=== PATIENT | female | born 1980 | race Caucasian/White ===

== ENCOUNTER 2016-12-19 18:00 | Emergency (ER) | payer OTHER ==
--- NOTE | 2016-12-19 18:28 | ED NURSING NOTES ---
Clinical Report - Nurses [facility] [address] [place] [address] 12/19/2016 18:04 Patient: LANCE DELGADO TRIAGE Triage time 18:08 Dec 19 2016. Chief Complaint: RIGHT EAR PAIN and LEFT EAR PAIN, SINUS CONGESTION and SINUS PAIN (pt c/o bilat ear pain L>R that began yesterday, pt also c/o sinus pain and cough). Alert. No acute distress. SEPSIS SCREEN: Sepsis Screen: negative. Infection suspected/documented. --18:12 Sofy Tipton R.N. 18:08 12/19/16. BP: 121/76. HR: 80. RR: 17. O2 saturation: 100%. Temp: 98 F. Pain level now: 08/28. --18:12 Sofy Tipton R.N. Weight: 61.2 kg stated. Height/Length: 65 inches Per Patient. BMI: 22.5. --18:11 Sofy Tipton R.N. Medications FLUoxetine HCl Oral. --18:09 Sofy Tipton R.N. Medication/allergy information source: the patient. --18:12 Sofy Tipton R.N. Allergies None. --18:09 Sofy Tipton R.N. History Arrived by private vehicle. Historian: patient. Accompanied by family. The patient has had sinus pain. 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 PAST MEDICAL HX: Immunizations: up-to-date. Last normal menstrual period- 1 weeks ago. SOCIAL HX: Smoker- current status unknown (cigarette). Occasional alcohol use. History of occasional drug use: marijuana. No infectious disease exposure. ABUSE ASSESSMENT: No report of abuse. SELF HARM ASSESSMENT: A self harm assessment was performed. The patient answered "no" to the question "Do you have thoughts of harming or killing yourself?". FALL RISK ASSESSMENT: Fall risk assessment completed. No fall risk identified. NUTRITIONAL RISK ASSESSMENT: The nutritional risk assessment revealed no deficiencies. FUNCTIONAL ASSESSMENT: Functional assessment: no impairments noted. LEARNING NEEDS ASSESSMENT: The learning needs assessment revealed no barriers. SKIN INTEGRITY ASSESSMENT: Skin integrity risk assessment completed. No skin integrity risk identified. --18:12 Sofy Tipton R.N. PROBLEMS: no known problems. ADDITIONAL SURGERIES: no known surgeries. Interventions ID band on patient. To treatment room. --18:12 Sofy Tipton R.N. PHYSICAL ASSESSMENT Ambulatory to room. Patient gowned. GENERAL / NEURO / PSYCH: Alert. Appears in no acute distress. HEENT: No facial asymmetry noted. Pupils equal, round and reactive to light. Pharynx within normal limits. RESPIRATORY: Respirations not labored. CVS: Capillary refill less than 2 seconds. SKIN: Skin is warm and dry. --18:12 Sofy Tipton R.N. NURSING PROGRESS NOTES Patient gowned. Reassurance given. Patient identifiers checked. Call light placed in reach. Side rails up x 1. Bed placed in lowest position. Brakes of bed on. Patient ready for evaluation- chart flagged. Patient waiting for evaluation. --18:12 Sofy Tipton R.N. DISPOSITION / DISCHARGE 18:30. Condition at departure: unchanged. No learning barriers present. Discharge instructions provided and reviewed with the patient. Reviewed medication(s) side effects, precautions, dosing and course information. Prescription(s) given to the patient. Patient verbalized understanding. Written instructions provided in Lithuanian. The patient was discharged home. She left the Emergency Department ambulatory and via private vehicle. Patient driving. Medication list reviewed and validated. --18:40 Milena Chavarria R.N. 18:08 12/19/16. BP: 121/76. HR: 80. RR: 17. O2 saturation: 100%. Temp: 98 F. Pain level now: 08/28. --18:41 Milena Chavarria R.N. Locked/Released at 12/19/2016 18:41 by Milena Chavarria R.N.
--- NOTE | 2016-12-19 18:28 | ED CLINICAL REPORT ---
Clinical Report - Physicians/Mid Levels [facility] [address] [place] [address] 12/19/2016 18:04 [id number] Time Seen: 18:18 Dec 19 2016. Arrived- By private vehicle. Historian- patient. CPT: ER phys charges level 3 (#[id number]). HISTORY OF PRESENT ILLNESS Chief Complaint: SINUS PAIN. EAR ACHE. This started yesterday and is still present. The illness is described as moderate. The patient has had sputum production, a cough, nasal congestion and sinus pressure. No difficulty breathing, chest discomfort or pain, fever or muscle aches. No chills, sore throat or hoarseness. Additional history - No known contact with a sick individual. Similar symptoms previously: None. Recent medical care: Not recently seen/assessed. REVIEW OF SYSTEMS No headache, nausea, vomiting, diarrhea or abdominal pain. No pedal edema, calf pain, skin rash or enlarged lymph nodes. All systems otherwise negative, except as recorded above. PAST HISTORY See nurses notes. Problems: no known problems. Additional Surgeries: no known surgeries. Medications: FLUoxetine HCl Oral. Allergies: None. SOCIAL HISTORY Light tobacco smoker (cigarette)- less than 1/2 a pack per day. Alcohol use. History of drug use: marijuana. ADDITIONAL NOTES The nursing notes have been reviewed. PHYSICAL EXAM Vital Signs: 12/19/2016 18:08 BP: 121/76. HR: 80. RR: 17. O2 saturation: 100%. Temp: 98 F. Pain level now: 3/10. Appearance: Alert. No acute distress. Head: No tenderness to palpation/percussion over the sinuses. Eyes: Pupils equal, round and reactive to light. Eyes normal inspection. ENT: Right TM reveals bulging and moderate erythema left TM reveals bulging and moderate erythema. Nasal discharge present. Pharynx normal. Uvula midline. Neck: Normal inspection. CVS: Normal heart rate and rhythm. Pulses normal. Respiratory: No respiratory distress. Breath sounds normal. Abdomen: Soft and nontender. Skin: Normal skin color. No rash. Neuro: Oriented X 3. No motor deficit. No sensory deficit. PROGRESS AND PROCEDURES Patient/family counseled. Disposition: Discharged. Condition: stable. CLINICAL IMPRESSION Acute and recurrent serous right otitis media; acute and recurrent serous left otitis media. Acute bacterial mucopurulent bronchitis. INSTRUCTIONS Drink plenty of fluids. Drink plenty of fluids. (Get a decongestant over the counter.). Warnings: Further evaluation is necessary. GENERAL WARNINGS: Return or contact your physician immediately if your condition worsens or changes unexpectedly, if not improving as expected, or if other problems arise. Your Current Medications: CONTINUE TAKING THE FOLLOWING MEDICATIONS: FLUoxetine HCl Oral. Prescription Medications: Zithromax 250 mg tablets: take 2 orally today, followed by 1 daily for the next 4 days. No refills. Substitution is permissible. OTC Medications: Acetaminophen (available over the counter): take according to label instructions. Motrin (available over the counter): take according to label instructions. Follow-up: Follow up with your doctor in one week. Call for an appointment. Understanding of the discharge instructions verbalized by patient. (Electronically signed by Edwin Lowe MD 12/19/2016 20:54)
--- NOTE | 2016-12-19 18:28 | ED CLINICAL REPORT ---
Clinical Report - Physicians/Mid Levels [facility] [address] [place] [address] 12/19/2016 18:04 [id number] Time Seen: 18:18 Dec 19 2016. Arrived- By private vehicle. Historian- patient. CPT: ER phys charges level 3 (#[id number]). HISTORY OF PRESENT ILLNESS Chief Complaint: SINUS PAIN. EAR ACHE. This started yesterday and is still present. The illness is described as moderate. The patient has had sputum production, a cough, nasal congestion and sinus pressure. No difficulty breathing, chest discomfort or pain, fever or muscle aches. No chills, sore throat or hoarseness. Additional history - No known contact with a sick individual. Similar symptoms previously: None. Recent medical care: Not recently seen/assessed. REVIEW OF SYSTEMS No headache, nausea, vomiting, diarrhea or abdominal pain. No pedal edema, calf pain, skin rash or enlarged lymph nodes. All systems otherwise negative, except as recorded above. PAST HISTORY See nurses notes. Problems: no known problems. Additional Surgeries: no known surgeries. Medications: FLUoxetine HCl Oral. Allergies: None. SOCIAL HISTORY Light tobacco smoker (cigarette)- less than 1/2 a pack per day. Alcohol use. History of drug use: marijuana. ADDITIONAL NOTES The nursing notes have been reviewed. PHYSICAL EXAM Vital Signs: 12/19/2016 18:08 BP: 121/76. HR: 80. RR: 17. O2 saturation: 100%. Temp: 98 F. Pain level now: 3/10. Appearance: Alert. No acute distress. Head: No tenderness to palpation/percussion over the sinuses. Eyes: Pupils equal, round and reactive to light. Eyes normal inspection. ENT: Right TM reveals bulging and moderate erythema left TM reveals bulging and moderate erythema. Nasal discharge present. Pharynx normal. Uvula midline. Neck: Normal inspection. CVS: Normal heart rate and rhythm. Pulses normal. Respiratory: No respiratory distress. Breath sounds normal. Abdomen: Soft and nontender. Skin: Normal skin color. No rash. Neuro: Oriented X 3. No motor deficit. No sensory deficit. PROGRESS AND PROCEDURES Patient/family counseled. Disposition: Discharged. Condition: stable. CLINICAL IMPRESSION Acute and recurrent serous right otitis media; acute and recurrent serous left otitis media. Acute bacterial mucopurulent bronchitis. INSTRUCTIONS Drink plenty of fluids. Drink plenty of fluids. (Get a decongestant over the counter.). Warnings: Further evaluation is necessary. GENERAL WARNINGS: Return or contact your physician immediately if your condition worsens or changes unexpectedly, if not improving as expected, or if other problems arise. Your Current Medications: CONTINUE TAKING THE FOLLOWING MEDICATIONS: FLUoxetine HCl Oral. Prescription Medications: Zithromax 250 mg tablets: take 2 orally today, followed by 1 daily for the next 4 days. No refills. Substitution is permissible. OTC Medications: Acetaminophen (available over the counter): take according to label instructions. Motrin (available over the counter): take according to label instructions. Follow-up: Follow up with your doctor in one week. Call for an appointment. Understanding of the discharge instructions verbalized by patient. (Electronically signed by Edwin Lowe MD 12/19/2016 20:54)
--- NOTE | 2016-12-19 18:28 | ED NURSING NOTES ---
Clinical Report - Nurses [facility] [address] [place] [address] 12/19/2016 18:04 Patient: LANCE DELGADO TRIAGE Triage time 18:08 Dec 19 2016. Chief Complaint: RIGHT EAR PAIN and LEFT EAR PAIN, SINUS CONGESTION and SINUS PAIN (pt c/o bilat ear pain L>R that began yesterday, pt also c/o sinus pain and cough). Alert. No acute distress. SEPSIS SCREEN: Sepsis Screen: negative. Infection suspected/documented. --18:12 Sofy Tipton R.N. 18:08 12/19/16. BP: 121/76. HR: 80. RR: 17. O2 saturation: 100%. Temp: 98 F. Pain level now: 08/28. --18:12 Sofy Tipton R.N. Weight: 61.2 kg stated. Height/Length: 65 inches Per Patient. BMI: 22.5. --18:11 Sofy Tipton R.N. Medications FLUoxetine HCl Oral. --18:09 Sofy Tipton R.N. Medication/allergy information source: the patient. --18:12 Sofy Tipton R.N. Allergies None. --18:09 Sofy Tipton R.N. History Arrived by private vehicle. Historian: patient. Accompanied by family. The patient has had sinus pain. 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 PAST MEDICAL HX: Immunizations: up-to-date. Last normal menstrual period- 1 weeks ago. SOCIAL HX: Smoker- current status unknown (cigarette). Occasional alcohol use. History of occasional drug use: marijuana. No infectious disease exposure. ABUSE ASSESSMENT: No report of abuse. SELF HARM ASSESSMENT: A self harm assessment was performed. The patient answered "no" to the question "Do you have thoughts of harming or killing yourself?". FALL RISK ASSESSMENT: Fall risk assessment completed. No fall risk identified. NUTRITIONAL RISK ASSESSMENT: The nutritional risk assessment revealed no deficiencies. FUNCTIONAL ASSESSMENT: Functional assessment: no impairments noted. LEARNING NEEDS ASSESSMENT: The learning needs assessment revealed no barriers. SKIN INTEGRITY ASSESSMENT: Skin integrity risk assessment completed. No skin integrity risk identified. --18:12 Sofy Tipton R.N. PROBLEMS: no known problems. ADDITIONAL SURGERIES: no known surgeries. Interventions ID band on patient. To treatment room. --18:12 Sofy Tipton R.N. PHYSICAL ASSESSMENT Ambulatory to room. Patient gowned. GENERAL / NEURO / PSYCH: Alert. Appears in no acute distress. HEENT: No facial asymmetry noted. Pupils equal, round and reactive to light. Pharynx within normal limits. RESPIRATORY: Respirations not labored. CVS: Capillary refill less than 2 seconds. SKIN: Skin is warm and dry. --18:12 Sofy Tipton R.N. NURSING PROGRESS NOTES Patient gowned. Reassurance given. Patient identifiers checked. Call light placed in reach. Side rails up x 1. Bed placed in lowest position. Brakes of bed on. Patient ready for evaluation- chart flagged. Patient waiting for evaluation. --18:12 Sofy Tipton R.N. DISPOSITION / DISCHARGE 18:30. Condition at departure: unchanged. No learning barriers present. Discharge instructions provided and reviewed with the patient. Reviewed medication(s) side effects, precautions, dosing and course information. Prescription(s) given to the patient. Patient verbalized understanding. Written instructions provided in Hebrew. The patient was discharged home. She left the Emergency Department ambulatory and via private vehicle. Patient driving. Medication list reviewed and validated. --18:40 Milena Chavarria R.N. 18:08 12/19/16. BP: 121/76. HR: 80. RR: 17. O2 saturation: 100%. Temp: 98 F. Pain level now: 08/28. --18:41 Milena Chavarria R.N. Locked/Released at 12/19/2016 18:41 by Milena Chavarria R.N.
--- NOTE | 2016-12-19 20:54 | ED MED RECONCILIATION SUMMARY ---
Patient: LANCE DELGADO Medication Reconciliation Report [facility] VisitID: [id number] [address] [place] [address] 36y, F Registration Date/Time: 12/19/2016 Weight: 61.2 kg Height/Length: 65 in. BMI: 22.5 ALLERGIES: None The patient's Home Medications are listed below: CONTINUE TAKING THE FOLLOWING MEDICATIONS: FLUoxetine HCl Oral The source(s) of the original Home Medication information: patient The following Medications were given to the patient in the Emergency Department: None. The following Medications were prescribed to the patient: Acetaminophen (available over the counter): take according to label instructions. -- Edwin Lowe MD Motrin (available over the counter): take according to label instructions. -- Edwin Lowe MD Zithromax 250 mg tablets: take 2 orally today, followed by 1 daily for the next 4 days. No refills. Substitution is permissible. -- Edwin Lowe MD
--- NOTE | 2016-12-19 20:54 | ED MAR SUMMARY ---
..... Medication Administration Record [facility] [address], [place] [id number] Patient: LANCE DELGADO [place] Visit ID: [id number] 36y, F Weight: 61.2 kg Height/Length: 65 in BMI: 22.5 ALLERGIES: None
--- NOTE | 2016-12-19 20:54 | ED MAR SUMMARY ---
..... Medication Administration Record [facility] [address] [place], [place] [id number] Patient: LANCE DELGADO [place] Visit ID: [id number] 36y, F Weight: 61.2 kg Height/Length: 65 in BMI: 22.5 ALLERGIES: None
--- NOTE | 2016-12-19 20:54 | ED DISCHARGE INSTRUCTIONS ---
Patient: LANCE DELGAOD General Instructions [facility] VisitID: [id number] [place] [address] 36y, F Registration Date/Time: 12/19/2016 Acute and recurrent serous right otitis media; acute and recurrent serous left otitis media. INSTRUCTIONS Drink plenty of fluids. Drink plenty of fluids. (Get a decongestant over the counter.). Warnings: Further evaluation is necessary. GENERAL WARNINGS: Return or contact your physician immediately if your condition worsens or changes unexpectedly, if not improving as expected, or if other problems arise. Your Current Medications: CONTINUE TAKING THE FOLLOWING MEDICATIONS: FLUoxetine HCl Oral. Prescription Medications: Zithromax 250 mg tablets: take 2 orally today, followed by 1 daily for the next 4 days. No refills. Substitution is permissible. OTC Medications: Acetaminophen (available over the counter): take according to label instructions. Motrin (available over the counter): take according to label instructions. Follow-up: Follow up with your doctor in one week. Call for an appointment. Understanding of the discharge instructions verbalized by patient. ADDITIONAL INFORMATION Middle Ear Infection (Adult) You have an infection of the middle ear (the space behind the eardrum). It can occur as a result of the common cold. This is because congestion can block the internal passage (eustachian tube) that drains fluid from the middle ear. When the middle ear fills with fluid, bacteria can grow there and cause an infection. Oral antibiotics are used to treat this illness, not ear drops. Symptoms usually start to improve within 1-2 days of treatment. Home Care: Finish all of the antibiotic medicine prescribed, even though you may feel better after the first few days. You may use acetaminophen (Tylenol) or ibuprofen (Motrin, Advil) to control pain, unless something else was prescribed. [NOTE: If you have chronic liver or kidney disease or have ever had a stomach ulcer or GI bleeding, talk with your doctor before using these medicines.] (Do not give aspirin to anyone under 18 years of age who is ill with a fever. It may cause severe liver damage.) Follow Up with your doctor or this facility in two weeks if all symptoms have not cleared, or if hearing does not return to normal within one month. Get Prompt Medical Attention if any of the following occur: Ear pain gets worse or does not improve after three days of treatment Unusual drowsiness or confusion Neck pain, stiff neck or headache Fluid or blood draining from the ear canal Fever of 100.4F (38C) or higher after 3 days of antibiotics, or as directed by your healthcare provider Convulsion (seizure) Bronchitis (Adult: Abx Tx) BRONCHITIS is an infection of the air passages (bronchial tubes). It often occurs during the common cold. Symptoms include cough with mucus (phlegm) and low-grade fever. Bronchitis usually lasts 7-14 days. Mild cases can be treated with simple home remedies. More severe infection is treated with an antibiotic. Home Care: If symptoms are severe, rest at home for the first 2-3 days. When you resume activity, don't let yourself get too tired. Do not smoke. Avoid being exposed to the smoke of others. You may use acetaminophen (Tylenol) or ibuprofen (Motrin, Advil) to control fever or pain, unless another medicine was prescribed for this. [NOTE: If you have chronic liver or kidney disease or ever had a stomach ulcer or GI bleeding, talk with your doctor before using these medicines.] Your appetite may be poor, so a light diet is fine. Avoid dehydration by drinking 6-8 glasses of fluids per day (water, soft, drinks, juices, tea, soup, etc.). Extra fluids will help loosen secretions in the lungs. Fouc-fsl-zecwtfr cough medicines that containdextromethorphan(such as Robitussin DM) and decongestants (Actifed or Sudafed) may help relieve cough and congestion. [NOTE: Do not use decongestants if you have high blood pressure.] Finish all antibiotic medicine, even if you are feeling better after only a few days. Follow Up with your doctor or as directed if you dont start to feel better after three days. [NOTE: If you are age 65 or older, or if you have chronic asthma or COPD, we recommend a PNEUMOCOCCAL VACCINATION every five years and a yearly INFLUENZAVACCINATION (FLU-SHOT) every . Ask your doctor about this. If you had an X-ray, a radiologist will review it. You will be notified of any new findings that may affect your care.] Get Prompt Medical Attention if any of the following occur: Fever over 100.4F (38.0C) for more than three days Trouble breathing, wheezing or pain with breathing Coughing up blood or increased amounts of colored sputum Weakness, drowsiness, headache, facial pain, ear pain or a stiff neck You have been given the following additional information: Otitis Media, Abx Tx (Adult) Bronchitis, Antiobiotic Treatment (Adult) (Electronically signed by Edwin Lowe MD 12/19/2016 20:54)
--- NOTE | 2016-12-19 20:54 | ED MED RECONCILIATION SUMMARY ---
Patient: LANCE DELGADO Medication Reconciliation Report [facility] VisitID: [id number] [address] [place] [address] 36y, F Registration Date/Time: 12/19/2016 Weight: 61.2 kg Height/Length: 65 in. BMI: 22.5 ALLERGIES: None The patient's Home Medications are listed below: CONTINUE TAKING THE FOLLOWING MEDICATIONS: FLUoxetine HCl Oral The source(s) of the original Home Medication information: patient The following Medications were given to the patient in the Emergency Department: None. The following Medications were prescribed to the patient: Acetaminophen (available over the counter): take according to label instructions. -- Edwin Lowe MD Motrin (available over the counter): take according to label instructions. -- Edwin Lowe MD Zithromax 250 mg tablets: take 2 orally today, followed by 1 daily for the next 4 days. No refills. Substitution is permissible. -- Edwin Lowe MD
== END 2016-12-19 18:30 | disposition home or self-care (01) ==
LOC: ED SRH 18:00
DX: H65.06 Acute serous otitis media, recurrent, bilateral (principal); J20.9 Acute bronchitis, unspecified; F17.210 Nicotine dependence, cigarettes, uncomplicated